=== PATIENT | female | born 1985 | race African-American/Black ===

== ENCOUNTER 2017-11-27 07:11 | Emergency (ER) | payer SELFPAY | END 2017-11-27 08:52 | disposition home or self-care (01) | LOC: ERS 07:11 | DX: J06.9 Acute upper respiratory infection, unspecified (principal) | CPT/HCPCS: 99283 ==

== ENCOUNTER 2018-10-07 23:14 | Emergency (ER) | payer SELFPAY ==
[2018-10-07] MEDS ORDERED: Ketorolac Tromethamine 60 MG/2 ML VIAL ONE (23:32)
== END 2018-10-08 00:05 | disposition home or self-care (01) ==
LOC: ERS 23:14
DX: K02.9 Dental caries, unspecified (principal); Z79.84 Long term (current) use of oral hypoglycemic drugs
CPT/HCPCS: 96372; J1885

== ENCOUNTER 2018-10-16 12:19 | Emergency (ER) | payer SELFPAY ==
[2018-10-16 13:37] LABS: Hemoglobin 13.9 g/dL (12.0-16.0); Mean Corpuscular HGB CONC 32.1 g/dL (32.0-36.0); Mean Corpuscular Hemoglobin 27.4 pg (27.0-31.0); Mean Corpuscular Volume 85.4 fL (78.0-98.0); Mean Platelet Volume 6.5 fL (7.4-10.4); Platelet Count 354 thou/uL (130-400); RBC Distribution Width 12.3 % (11.5-14.5); Red Blood Cell (RBC) Count 5.08 mill/uL (4.20-5.40); White Blood Cell (WBC) Count 4.9 thou/uL (4.8-10.8)
--- NOTE | 2018-10-16 13:49 | RAD ---
PORTABLE CHEST ONE VIEW: Date: 10-16-18 Time: 1:17 p.m. History: Chest pain. FINDINGS: The heart size is normal. The lungs are expanded without focal areas of consolidation, pneumothoraces or pleural effusions. IMPRESSION: No radiographic evidence of acute cardiopulmonary process. POS: OFF
[2018-10-16 13:54] LABS: ALT (SGPT) 33 U/L (8-55); AST (SGOT) 19 U/L (5-34); Albumin 4.4 g/dL (3.5-5.0); Alkaline Phosphatase 59 U/L (40-150); Anion Gap 12 mmol/L (10-20); BUN (Urea Nitrogen) 10 mg/dL (7.0-18.7); Bilirubin, Total 0.3 mg/dL (0.2-1.2); Calc. Creatinine Clearance 0 mL/min (70-130); Calcium 9.9 mg/dL (7.8-10.44); Carbon Dioxide 26 mmol/L (22-29); Chloride 105 mmol/L (98-107); Estimated GFR-MDRD Greater than 90; Globulin 3.5 g/dL (2.4-3.5); Glucose 87 mg/dL (70-105); Lymphocytes 52 % (21-51); MDiff Complete? YES; Monocytes 9 % (0-10); Neutrophil 37 % (42-75); PLT Morphology Comment Appears Adequate; Potassium 3.7 mmol/L (3.5-5.1); Protein, Total 7.9 g/dL (6.0-8.3); RBC Morphology Normal; Reactive Lymphocytes 1 % (0-10); Sodium 139 mmol/L (136-145)
== END 2018-10-16 15:08 | disposition home or self-care (01) ==
LOC: ERS 12:19
DX: I10 Essential (primary) hypertension (principal); Z79.84 Long term (current) use of oral hypoglycemic drugs
CPT/HCPCS: 36415; 71045; 80053; 84484; 85025; 93005

== ENCOUNTER 2018-12-20 07:32 | Emergency (ER) | payer SELFPAY ==
[2018-12-20 08:56] LABS: Pregnancy Test - Urine (BHCG) Negative (Negative); Pregu Control Background? CLEAR/WHITE (CLR/WHITE); Pregu Control Bar Appear? YES (CONTROL BAR); Specific Gravity 1.025 (1.002-1.036)
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
== END 2018-12-20 09:38 | disposition home or self-care (01) ==
LOC: ERS 07:32
DX: M54.6 Pain in thoracic spine (principal); M25.511 Pain in right shoulder; E11.9 Type 2 diabetes mellitus without complications; I10 Essential (primary) hypertension; Z79.84 Long term (current) use of oral hypoglycemic drugs; Z79.899 Other long term (current) drug therapy; V43.52XA Car driver injured in collision with other type car in traffic accident, initial encounter
CPT/HCPCS: 72072; 81025